=== PATIENT | male | born 1985 | race Caucasian/White ===

== ENCOUNTER 2018-11-24 06:08 | Emergency (ER) | payer OTHER ==
[2018-11-24 06:24] VITALS: TEMP 98.7
--- NOTE | 2018-11-24 07:31 | ED PDOC ---
Arrival/HPI - General Chief Complaint: Syncope Time Seen by Provider: 11/24/18 07:11 Historian: Patient - History of Present Illness Narrative History of Present Illness (Text): 11/24/18 07:29 33 year old male, with no significant past medical history, presents to the emergency department for evaluation s/p loss of consciousness last night. Patient reports he felt slight weakness and lightheadedness while walking to the bathroom before he lost consciousness. He reports history of slight weakness for the past couple of months. He denies any history of similar symptoms in the past. Patient is a smoker and occasional drinker, but denies drinking last night. Patient denies any fever, chills, chest pain, shortness of breath, nausea, vomiting, diarrhea, urinary symptoms, back pain, neck pain, leg swelling, headache, or any other complaints. PMD: None Time/Duration: Other (last night) Symptom Onset: Gradual Symptom Course: Unchanged Activities at Onset: Light Context: Home Past Medical History - Provider Review Nursing Documentation Reviewed: Yes - Infectious Disease Hx of Infectious Diseases: None - Psychiatric Hx Substance Use: No Family/Social History - Physician Review Nursing Documentation Reviewed: Yes Family/Social History: No Known Family HX. denies: CAD/PA Smoking Status: Light Smoker < 10 Cigarettes Daily Hx Alcohol Use: No Hx Substance Use: No Allergies/Home Meds Allergies/Adverse Reactions: Allergies No Known Allergies Allergy (Verified 11/24/18 06:24) Review of Systems - Physician Review All systems were reviewed & negative as marked: Yes - Review of Systems Constitutional: absent: Fevers, Other (chills) Respiratory: absent: SOB Cardiovascular: absent: Chest Pain, Edema Gastrointestinal: absent: Diarrhea, Nausea, Vomiting Genitourinary Male: absent: Dysuria, Frequency, Hematuria Musculoskeletal: absent: Back Pain, Neck Pain Neurological: Dizziness, Other ((+) slight weakness (+) LOC ). absent: Headache Physical Exam - Physical Exam Narrative Physical Exam (Text): Gen: VS reviewed, alert, well developed, well nourished, nontoxic, mild distress. ENT: normal pharynx. Eye: EOMI, PERRL. Neck: no JVD, supple, no adenopathy. CV: regular rate, regular rhythm, no rubs, no murmur, no gallops, S1, S2, pulses equal and strong. Pulm: no distress, clear to auscultation, no wheeze, no rhonchi, breath sounds equal, no rales. Abd: soft, nontender, no guarding, no rebound, no rigidity, normal bowel sounds. Ext: no edema. Skin: good color, no rash, no cyanosis. Psych: responds appropriately to questions, normal affect. Neuro: oriented x 3, CN2-12 intact grossly, motor intact, sensation intact. Vital Signs Reviewed: Yes Vital Signs Temp Pulse Resp BP Pulse Ox 11/24/18 06:49 93 H 14 150/96 H 95 11/24/18 06:19 98.7 F 102 H 16 153/85 H 100 Temperature: Afebrile Blood Pressure: Normal Pulse: Tachycardic Respiratory Rate: Normal Medical Decision Making ED Course and Treatment: 11/24/18 07:34 Impression: 33 year old male presents for evaluation s/p loss of consciousness last night after feeling slight weakness and lightheaded. Plan: -- EKG -- Labs -- Chest X-ray -- Urinalysis -- Reassess and disposition Progress Notes: 11/24/18 10:17 patient seen for syncope, no significant head trauma, no acute symptoms prior to event such as headache, chest pain, abd or back pain. patient noted to have a randomly elevated blood glucose and informed to follow up with pcp for formal testing for DM. patient's blood pressure elevated during ED course and it was mutually agreed with the patient to start antihypertensive therapy. patient stable for dc, understands and is agreeable to plan and will make the appropriate follow up. - Lab Interpretations I have reviewed the lab results: Yes - RAD Interpretation Narrative RAD Interpretations (Text): Chest X-ray Dictator : Dimitri Groves MD Report Date : 11/24/2018 09:13:38 IMPRESSION: No active disease. [employer] Erp Architect: Radiologist - EKG Interpretation EKG Interpretation (Text): 11/24/18 06:23 EKG shows Sinus Tachycardia 101 BPM with normal QRS, normal axis, normal intervals, no acute ST/T wave abnormalities. Interpreted by me. Interpreted by ED Physician: Yes Type: 12 lead EKG - Scribe Statement The provider has reviewed the documentation as recorded by the Jaime Ramirez Provider Scribe Attestation: All medical record entries made by the Scribe were at my direction and personally dictated by me. I have reviewed the chart and agree that the record accurately reflects my personal performance of the history, physical exam, medical decision making, and the department course for this patient. I have also personally directed, reviewed, and agree with the discharge instructions and disposition. Disposition/Present on Arrival - Present on Arrival Any Indicators Present on Arrival: No History of DVT/PE: No History of Uncontrolled Diabetes: No Urinary Catheter: No History of Decub. Ulcer: No History Surgical Site Infection Following: None - Disposition Have Diagnosis and Disposition been Completed?: Yes Diagnosis: Syncope, Elevated random blood glucose level, High blood pressure Disposition: HOME/ ROUTINE Disposition Time: 10:20 Patient Plan: Discharge Patient Problems: Current Active Problems Problem Status Onset Syncope Acute Elevated random blood glucose level Acute High blood pressure Acute Condition: STABLE Discharge Instructions (ExitCare): Syncope (Fainting), High Blood Pressure in Adults, Medicines for High Blood Pressure, Prediabetes, Syncope (ED) Additional Instructions: stay well hydrated (water). follow up with a body press operator for follow up care for syncope (blacking out)- you may need further testing testing such a ultrasound of your heart. follow up with your doctor to get formally tested for diabetes. see your doctor as soon as possible for the high blood pressure. Prescriptions: Lisinopril [Prinivil] 10 mg PO DAILY 30 Days #30 tablet Referrals: Dimitri Monet MD [Staff Provider] - Follow up with primary [facility] [Outside] - Follow up with primary Forms: [facility] ([place]se), WORK NOTE
[2018-11-24 07:44] LABS: BASO # 0.02 K/mm3 (0.0-2.0); BASO % 0.2 % (0.0-3.0); EOS # 0.1 (0.0-0.7); HEMOGLOBIN 15.1 g/dL (14.0-18.0); LYMPH # 2.2 (1.2-3.4); LYMPH % 21.5 % (22.0-35.0); MEAN CELL VOLUME 83.6 fl (80.0-105.0); MEAN CORPUSCULAR HEMOGLOBIN 29.2 pg (25.0-35.0); MEAN CORPUSCULAR HGB CONC 34.9 g/dl (31.0-37.0); MEAN PLATELET VOLUME 9.8 fl (7.0-11.0); MONO # 0.3 (0.1-0.6); RBC 5.18 10^6/uL (3.5-6.1); RED CELL DISTRIBUTION WIDTH 12.5 % (11.5-14.5); WHITE BLOOD COUNT 10.2 10^3/uL (4.5-11.0)
[2018-11-24 07:55] LABS: ALB/GLOB RATIO 1.1 (1.1-1.8); ALBUMIN 4.6 g/dL (3.0-4.8); ALT/SGPT 40 U/L (7-56); AST/SGOT 32 U/L (17-59); BLOOD UREA NITROGEN 9 mg/dL (7-21); CALCIUM 9.1 mg/dL (8.4-10.5); GFR NON-AFRICAN AMERICAN > 60
--- NOTE | 2018-11-24 09:17 | RAD ---
Date of service: 11/24/2018 HISTORY: syncope COMPARISON: No prior. TECHNIQUE: Chest PA and lateral views FINDINGS: LUNGS: No active pulmonary disease. PLEURA: No significant pleural effusion identified. No pneumothorax apparent. CARDIOVASCULAR: No aortic atherosclerotic calcification present. Normal cardiac size. No pulmonary vascular congestion. OSSEOUS STRUCTURES: No significant abnormalities. VISUALIZED UPPER ABDOMEN: Normal. OTHER FINDINGS: None. IMPRESSION: No active disease.
[2018-11-24 09:50] VITALS: RESP 18
[2018-11-24 10:07] VITALS: BP 140/99
[2018-11-24 10:33] VITALS: PULSE 86; O2SAT 96
--- NOTE | 2018-11-24 19:38 | CARD ---
APPROVED REPORT Date of service: 11/24/2018 EKG Measurement Heart [id number] ND [id number] <Conclusion> Sinus tachycardia Otherwise normal ECG
== END 2018-11-24 10:33 | disposition home or self-care (01) ==
LOC: ED 06:08
DX: R73.9 Hyperglycemia, unspecified (principal); I10 Essential (primary) hypertension; R55 Syncope and collapse; F17.210 Nicotine dependence, cigarettes, uncomplicated